=== PATIENT | female | born 1995 | race African-American/Black ===

== ENCOUNTER 2023-07-09 20:04 | Emergency (ER) | payer OTHER ==
[~2023-07-09] VITALS: Ht 177.8 cm; Wt 105.0 kg
[2023-07-09 20:07] VITALS: O2SAT 98
[2023-07-09 20:45] LABS: HEMATOCRIT. 24.8 % (36.0-48.0); HEMOGLOBIN. 7.1 g/dL (12.0-16.0); MEAN CORPUSCULAR HEMOGLOBIN 18.6 pg (28.0-32.0); MEAN CORPUSCULAR HGB CONC 28.7 g/dL (31.0-37.0); MEAN CORPUSCULAR VOLUME 64.7 fL (81.0-99.0); MEAN PLATELET VOLUME 8.9 fl (7.4-10.4); PLATELET 357 x1000/uL (130-400); RED BLOOD CELL COUNT 3.84 mill/uL (4.2-5.4); RED CELL DISTRIBUTION WIDTH 21.7 % (11.6-14.6)
[2023-07-09 20:47] LABS: DIFFERENTIAL COMMENT 1
[2023-07-09 20:57] LABS: HCG SCREEN NEGATIVE
[2023-07-09 20:59] LABS: INR 1.1; PROTHROMBIN TIME 11.8 sec (9.6-11.0)
[2023-07-09 21:00] LABS: ALANINE AMINOTRANSFERASE 8 IU/L (10-49); ALBUMIN 4.1 g/dL (3.2-4.8); ASPARTATE AMINOTRANSFERASE 13 IU/L (<34); BILIRUBIN TOTAL 0.3 mg/dL (0.1-1.0); CALCIUM 8.5 mg/dL (8.7-10.4); CARBON DIOXIDE 25 mEq/L (21-32); CHLORIDE 111 mEq/L (98-107); CREATININE 0.8 mg/dL (0.6-1.0); GLUCOSE 77 mg/dL (70-105); POTASSIUM 3.2 mEq/L (3.5-5.1); PROTEIN TOTAL 6.6 g/dL (6.0-8.3); SODIUM 141 mEq/L (136-145); UREA NITROGEN BLOOD 13 mg/dL (9-23)
[2023-07-09 21:01] LABS: ETHANOL BLOOD < 10 mg/dL (<10)
[2023-07-09 21:09] LABS: ANISOCYTOSIS 2+; HYPOCHROMASIA 3+; MICROCYTOSIS 3+; PLATELET ESTIMATE NORMAL
[2023-07-09] MEDS: MORPHINE SULFATE 4 MG/ML INJ (FOR IV/IM USE) IV ONE (21:47)
[2023-07-09] MEDS ORDERED: IOHEXOL-350 100 ML BOTTLE ONE (23:16)
[2023-07-09 23:40] VITALS: BP 144/80; PULSE 80; RESP 14; TEMP 97.5
== END 2023-07-10 00:22 | disposition short-term general hospital (02) ==
LOC: ER 20:04
DX: G83.9 Paralytic syndrome, unspecified (principal); M54.2 Cervicalgia; M79.601 Pain in right arm
CPT/HCPCS: 80053; 80320; 84703; 85025; 85610; 36415; 71045; 72170; 73030; 73060; 73090; 73130; 70450; 71260; 72125; 74177; 96374; 99291; Q9967; J2270; Z7610 ×2; G0480